=== PATIENT | male | born 1990 | race Two or more races ===

== ENCOUNTER 2021-04-10 03:13 | Emergency (ER) | payer SELFPAY ==
[~2021-04-10] VITALS: Ht 195.6 cm; Wt 186.0 kg
[2021-04-10 04:50] VITALS: BP 138/76
[2021-04-10] MEDS ORDERED: AZITTAB PO (06:17)
[2021-04-10] MEDS ORDERED: ALBU108A5 IN (06:17)
== END 2021-04-10 07:02 | disposition home or self-care (01) ==
LOC: ER 03:13
DX: J40 Bronchitis, not specified as acute or chronic (principal)